=== PATIENT | male | born 1955 | race Two or more races ===

== ENCOUNTER 2020-06-13 10:02 | Emergency (ER) | payer SELFPAY ==
[~2020-06-13] VITALS: Ht 175.3 cm; Wt 68.0 kg
[2020-06-13 10:02] VITALS: BP 152/108
[2020-06-13] MEDS ORDERED: Omnipaque-300 100ml vial INJ PRN (10:15)
[2020-06-13] MEDS ORDERED: Morphine Sulfate 4mg/ml Inj (IV USE ONLY) IVP ONE (10:15)
--- NOTE | 2020-06-13 10:30 | Emergency Room Report ---
History of Present Illness General Chief Complaint: Abdominal Pain Source: Patient, EMS Present Illness HPI 65-year-old male presents to ED complaining of abdominal pain. Brought in by EMS from home. States is been having pain on and off for the last several months. Pain is epigastric, sharp, 10 out of 10, nonradiating. States he used to drink alcohol but has stopped. Denies chest pain or shortness of breath. States he has had this pain seen at [facility] for this pain last month but was not given a diagnosis. Does not know what tests were done. No other aggravating relieving factors. Denies any other associated symptoms Allergies: Coded Allergies: No Known Allergies (Unverified , 06/13/20) COVID-19 Screening Contact w/high risk pt: No Experienced COVID-19 symptoms?: No COVID-19 Testing performed BALANCE CLERK: No Patient History Past Medical History: DM, HTN Past Surgical History: none Pertinent Family History: none Social History: Denies: smoking, alcohol use, drug use Immunizations: UTD Reviewed Nursing Documentation: PMH: Agreed; PSxH: Agreed Nursing Documentation-PMH Past Medical History: No History, Except For Hx Hypertension: Yes Hx Diabetes: Yes Review of Systems All Other Systems: negative except mentioned in HPI Physical Exam Vital Signs Date Time Temp Pulse Resp B/P (MAP) Pulse Ox O2 Delivery O2 Flow Rate FiO2 06/13/20 09:54 97.9 88 16 139/85 (103) 100 Room Air Sp02 EP Interpretation: reviewed, normal General Appearance: alert, GCS 15, non-toxic, mild distress Head: normocephalic, atraumatic Eyes: bilateral eye normal inspection, bilateral eye PERRL ENT: hearing grossly normal, normal pharynx, no angioedema, normal voice Neck: full range of motion, supple/symm/no masses Respiratory: chest non-tender, lungs clear, normal breath sounds, speaking full sentences Cardiovascular #1: regular rate, rhythm, no edema Cardiovascular #2: 2+ carotid (R), 2+ carotid (L), 2+ radial (R), 2+ radial (L), 2+ dorsalis pedis (R), 2+ dorsalis pedis (L) Gastrointestinal: normal bowel sounds, soft, non-distended, no guarding, no rebound, tenderness Rectal: deferred Genitourinary: normal inspection, no CVA tenderness Musculoskeletal: back normal, normal range of motion, gait/station normal, non- tender Neurologic: alert, motor strength/tone normal, oriented x3, sensory intact, responsive, speech normal Psychiatric: judgement/insight normal, memory normal, mood/affect normal, no suicidal/homicidal ideation Reflexes: 3+ bicep (R), 3+ bicep (L), 3+ tricep (R), 3+ tricep (L), 3+ knee (R), 3+ knee (L) Skin: no rash Lymphatic: no adenopathy Medical Decision Making Diagnostic Impression: 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 After initial history and physical I ordered labs, IV fluids, pain medications and CT scan Labs - noted leukocytosis, electrolytes ok, CT scan shows less with likely metastasis to the lungs I discussed findings with patient. No signs of obstruction. Vitals stable. Abdomen soft. I explained that this is cancer which is likely spread to the lungs. Patient states he does not have a PMD. Will provide referrals. I explained that prognosis is unlikely favorable at this time. I will prescribe him some pain medication I feel this is a highly complex case requiring extensive working including EKG/Rhythm strip, Xray/CT/US, Blood/urine lab work, repeat exams while in ED, and administration of strong opiates/narcotics for pain control, admission to hospital or close patient follow up. Diagnosis - duodenal mass, metastasis to lung Stable and discharged to home. Followup with PMD. Return to ED if symptoms recur or worsen Laboratory Tests Test 06/13/20 10:15 06/13/20 11:34 White Blood Count 14.1 K/UL (4.8-10.8) H Red Blood Count 4.19 M/UL (4.70-6.10) L Hemoglobin 8.5 G/DL (14.2-18.0) L Hematocrit 27.8 % (42.0-52.0) L Mean Corpuscular Volume 66 FL (80-99) L Mean Corpuscular Hemoglobin 20.2 PG (27.0-31.0) L Mean Corpuscular Hemoglobin Concent 30.5 G/DL (32.0-36.0) L Red Cell Distribution Width 16.2 % (11.6-14.8) H Platelet Count 495 K/UL (150-450) H Mean Platelet Volume 4.9 FL (6.5-10.1) L Neutrophils (%) (Auto) % (45.0-75.0) Lymphocytes (%) (Auto) % (20.0-45.0) Monocytes (%) (Auto) % (1.0-10.0) Eosinophils (%) (Auto) % (0.0-3.0) Basophils (%) (Auto) % (0.0-2.0) Differential Total Cells Counted 100 Neutrophils % (Manual) 75 % (45-75) Lymphocytes % (Manual) 17 % (20-45) L Monocytes % (Manual) 8 % (1-10) Eosinophils % (Manual) 0 % (0-3) Basophils % (Manual) 0 % (0-2) Band Neutrophils 0 % (0-8) Platelet Estimate Increased H Platelet Morphology Normal Hypochromasia 3+ Anisocytosis 1+ Microcytosis 3+ Sodium Level 132 MMOL/L (136-145) L Potassium Level 3.8 MMOL/L (3.5-5.1) Chloride Level 98 MMOL/L (98-107) Carbon Dioxide Level 26 MMOL/L (21-32) Anion Gap 8 mmol/L (5-15) Blood Urea Nitrogen 10 mg/dL (7-18) Creatinine 0.8 MG/DL (0.55-1.30) Estimat Glomerular Filtration Rate > 60 mL/min (>60) Glucose Level 174 MG/DL (74-106) H Calcium Level 8.8 MG/DL (8.5-10.1) Total Bilirubin 0.2 MG/DL (0.2-1.0) Aspartate Amino Transf (AST/SGOT) 26 U/L (15-37) Alanine Aminotransferase (ALT/SGPT) 44 U/L (12-78) Alkaline Phosphatase 85 U/L (46-116) Troponin I 0.000 ng/mL (0.000-0.056) Total Protein 7.7 G/DL (6.4-8.2) Albumin 2.8 G/DL (3.4-5.0) L Globulin 4.9 g/dL Albumin/Globulin Ratio 0.6 (1.0-2.7) L Lipase 120 U/L (73-393) Urine Color Pale yellow Urine Appearance Clear Urine pH 5 (4.5-8.0) Urine Specific [place] 1.010 (1.005-1.035) Urine Protein Negative (NEGATIVE) Urine Glucose (UA) Negative (NEGATIVE) Urine Ketones Negative (NEGATIVE) Urine Blood Negative (NEGATIVE) Urine Nitrite Negative (NEGATIVE) Urine Bilirubin Negative (NEGATIVE) Urine Urobilinogen Normal MG/DL (0.0-1.0) Urine Leukocyte Esterase Negative (NEGATIVE) EKG Diagnostic Results Rate: normal Rhythm: NSR ST Segments: no acute changes ASA given to the pt in ED: No Rhythm Strip Diag. Results EP Interpretation: yes Rhythm: NSR, no PVC's, no ectopy CT/MRI/US Diagnostic Results CT/MRI/US Diagnostic Results : Imaging Test Ordered: CT A/P Impression Procedure: CT Abdomen Pelvis w/Contrast Clinical Indication: Abdominal pain Technique: No oral contrast utilized, per emergency room physician request IV administration nonionic contrast. Venous phase spiral acquisition obtained through the abdomen and pelvis. Multiplanar reconstructions were generated. Total dose length product 284mGycm. CTDIvol(s) 5 mGy. Dose reduction achieved using automated exposure control Comparison: none Findings: Lack of enteric contrast limits assessment of the GI tract. There is mural thickening, irregularity, and some distention of the fourth portion of the duodenum. There is a mass that is contiguous with and may be attached to the wall of the fourth portion of the duodenum. This measures approximately 4 x 2.4 x 3.2 cm in diameter. This demonstrates a slightly low attenuation center. There is a slight degree of stranding of the adjacent fat common most notably inferior to the fourth portion of the duodenum. The periduodenal lesion appears to be contiguous with the left lateral aspect of the superior mesenteric artery but does not appear to surround or invaded. The lesion is also adjacent to but probably separate from the uncinate process of the pancreas. The pancreas itself appears grossly unremarkable. There are some peripancreatic lymph nodes which appear somewhat prominent and may have necrotic centers. The appendix is normal. There is no evidence of diverticulosis or diverticulitis. No small bowel distention. No free or loculated intraperitoneal gas or fluid is evident. The liver, gallbladder, bile ducts, spleen, adrenals, kidneys are unremarkable. No renal or ureteral calculi, hydronephrosis, or hydroureter. No pelvic mass or adenopathy. The prostate is enlarged, measures 5.5 cm transverse diameter. In the left lower lung, there is a 1 cm nodule in the posterior lower lobe, image 4 of series 5. Other subcentimeter nodules are seen in the left lower lobe and lef t upper lobe. There are dependent atelectatic changes of both lungs noted. The bones demonstrate degenerative spondylosis changes. Impression: Limited assessment of the GI tract, due to lack of enteric contrast administration Wall thickening, mural irregularity, and mild distention of the fourth portion of the duodenum. This is concerning for neoplasm. There is also a 4 x 2.4 x 3.2 cm mass contiguous with the fourth portion of the duodenum. This may represent an exophytic component of tumor, but more likely represents adjacent lymphadenopathy. There are other prominent nodes in the peripancreatic region, some of which have sug gestion of necrotic centers, and are likewise suspicious for metastatic lymphadenopathy. The included lung bases demonstrate at least 3 left lung nodules. Given the above, metastatic neoplasm is possible Prostatomegaly Findings reported to Dr. Jaquez in the emergency room at the time of interpretation The CT scanner at [facility] is accredited by the [employer] and the scans are performed using protocols designed to limit radiation exposure to as low as reasonably achievable to attain images of sufficient resolution adequate for diagnostic evaluation. Last Vital Signs Date Time Temp Pulse Resp B/P (MAP) Pulse Ox O2 Delivery O2 Flow Rate FiO2 06/13/20 10:02 98.8 95 18 152/108 100 Room Air Status: improved Disposition: HOME, SELF-CARE Condition: Stable Scripts Famotidine* (Pepcid 20mg tablet*) 20 Mg Tablet 20 MG ORAL DAILY, #30 TAB 0 Refills Prov: Erick Jaquez MD 06/13/20 Hydrocodone Bit/Acetaminophen 5-325* (NORCO 5-325 TABLET*) 1 Each Tablet 1 TAB ORAL Q6H PRN for FOR PAIN, #12 TAB 0 Refills Prov: Erick Jaquez MD 06/13/20 Erick Jaquez MD Jun 13, 2020 10:30
[2020-06-13 11:07] LABS: HEMATOCRIT 27.8 % (42.0-52.0); HEMOGLOBIN 8.5 G/DL (14.2-18.0); MEAN CORPUSCULAR VOLUME 66 FL (80-99); PLATELET COUNT 495 K/UL (150-450); RED BLOOD COUNT 4.19 M/UL (4.70-6.10); RED CELL DISTRIBUTION WIDTH 16.2 % (11.6-14.8); WHITE BLOOD COUNT 14.1 K/UL (4.8-10.8)
[2020-06-13 11:15] LABS: ANION GAP 8 mmol/L (5-15); BLOOD UREA NITROGEN 10 mg/dL (7-18); CALCIUM 8.8 MG/DL (8.5-10.1); CARBON DIOXIDE 26 MMOL/L (21-32); CHLORIDE 98 MMOL/L (98-107); CREATININE 0.8 MG/DL (0.55-1.30); POTASSIUM 3.8 MMOL/L (3.5-5.1); SODIUM 132 MMOL/L (136-145)
[2020-06-13 11:19] LABS: ALANINE AMINOTRANSFERASE 44 U/L (12-78); ALBUMIN 2.8 G/DL (3.4-5.0); ALBUMIN/GLOBULIN RATIO 0.6 (1.0-2.7); ALKALINE PHOSPHATASE 85 U/L (46-116); ASPARTATE AMINO TRANSFERASE 26 U/L (15-37); BILIRUBIN,TOTAL 0.2 MG/DL (0.2-1.0)
[2020-06-13 11:52] LABS: APPEARANCE,URINE CLEAR; BILIRUBIN, URINE NEGATIVE (NEGATIVE); COLOR,URINE PALE YELLOW; GLUCOSE, URINE (UA) NEGATIVE (NEGATIVE); KETONES,URINE NEGATIVE (NEGATIVE); LEUKOCYTE ESTERASE ,URINE NEGATIVE (NEGATIVE); NITRITE,URINE NEGATIVE (NEGATIVE); PH,URINE 5 (4.5-8.0); PROTEIN,URINE NEGATIVE (NEGATIVE); UROBILINOGEN,URINE NORMAL MG/DL (0.0-1.0)
[2020-06-13] MEDS ORDERED: Ketorolac 30mg Inj IV ONE (12:45)
--- NOTE | 2020-06-13 12:45 | Diagnostic Imaging Report ---
Clinical Indication: Abdominal pain Technique: No oral contrast utilized, per emergency room physician request IV administration nonionic contrast. Venous phase spiral acquisition obtained through the abdomen and pelvis. Multiplanar reconstructions were generated. Total dose length product 284mGycm. CTDIvol(s) 5 mGy. Dose reduction achieved using automated exposure control Comparison: none Findings: Lack of enteric contrast limits assessment of the GI tract. There is mural thickening, irregularity, and some distention of the fourth portion of the duodenum. There is a mass that is contiguous with and may be attached to the wall of the fourth portion of the duodenum. This measures approximately 4 x 2.4 x 3.2 cm in diameter. This demonstrates a slightly low attenuation center. There is a slight degree of stranding of the adjacent fat common most notably inferior to the fourth portion of the duodenum. The periduodenal lesion appears to be contiguous with the left lateral aspect of the superior mesenteric artery but does not appear to surround or invaded. The lesion is also adjacent to but probably separate from the uncinate process of the pancreas. The pancreas itself appears grossly unremarkable. There are some peripancreatic lymph nodes which appear somewhat prominent and may have necrotic centers. The appendix is normal. There is no evidence of diverticulosis or diverticulitis. No small bowel distention. No free or loculated intraperitoneal gas or fluid is evident. The liver, gallbladder, bile ducts, spleen, adrenals, kidneys are unremarkable. No renal or ureteral calculi, hydronephrosis, or hydroureter. No pelvic mass or adenopathy. The prostate is enlarged, measures 5.5 cm transverse diameter. In the left lower lung, there is a 1 cm nodule in the posterior lower lobe, image 4 of series 5. Other subcentimeter nodules are seen in the left lower lobe and left upper lobe. There are dependent atelectatic changes of both lungs noted. The bones demonstrate degenerative spondylosis changes. Impression: Limited assessment of the GI tract, due to lack of enteric contrast administration Wall thickening, mural irregularity, and mild distention of the fourth portion of the duodenum. This is concerning for neoplasm. There is also a 4 x 2.4 x 3.2 cm mass contiguous with the fourth portion of the duodenum. This may represent an exophytic component of tumor, but more likely represents adjacent lymphadenopathy. There are other prominent nodes in the peripancreatic region, some of which have suggestion of necrotic centers, and are likewise suspicious for metastatic lymphadenopathy. The included lung bases demonstrate at least 3 left lung nodules. Given the above, metastatic neoplasm is possible Prostatomegaly Findings reported to Dr. Jaquez in the emergency room at the time of interpretation The CT scanner at [facility] is accredited by the [employer] and the scans are performed using protocols designed to limit radiation exposure to as low as reasonably achievable to attain images of sufficient resolution adequate for diagnostic evaluation.
[2020-06-13] MEDS ORDERED: NORCO 5-325 TA1 EAC1 ORAL (13:09)
[2020-06-13] MEDS ORDERED: FAMOTIDINE20 MG ORAL (13:09)
[2020-06-13 13:25] VITALS: BP 148/95
--- NOTE | 2020-06-14 17:39 | Cardiology Report ---
APPROVED REPORT EKG Measurement Heart [id number] <Conclusion> Normal sinus rhythm Left axis deviation Abnormal ECG
== END 2020-06-13 13:25 | disposition home or self-care (01) ==
LOC: EDBD 10:02 → EMR 10:30
DX: K31.9 Disease of stomach and duodenum, unspecified (principal); C78.00 Secondary malignant neoplasm of unspecified lung; I10 Essential (primary) hypertension; E11.9 Type 2 diabetes mellitus without complications
CPT/HCPCS: 36415; 74177; 80053; 81003; 83690; 84484; 85007; 85025; 93005; 96361; 96374; 96375; 99284; J1885; J2270; J7030; Q9965; S0028